=== PATIENT | male | born 1970 | race Caucasian/White ===

== ENCOUNTER → 2017-12-25 | Outpatient (CLI) | payer BC ==
[2017-12-25 14:35] LABS: HCT 43.9 % (39.0-53.0); HGB 14.9 gm/dL (13.0-17.5); MCH 33.4 pg (25.0-35.0); MCHC 33.9 g/dL (31.0-37.0); MCV 98.4 fL (80.0-100.0); Mean Platelet Volume 7.6; Platelet Count 185 k/uL (150-450); RBC 4.46 m/uL (4.30-5.90); RDW 14.1 % (11.5-15.5)
[2017-12-25 14:48] LABS: Anion Gap 11 mmol/L; Blood Urea Nitrogen 12 mg/dL (9-20); Carbon Dioxide 23 mmol/L (22-30); Chloride 109 mmol/L (98-107); Potassium 3.9 mmol/L (3.5-5.1); Sodium 143 mmol/L (137-145)
== END | disposition home or self-care (01) ==
LOC: LABPAT 13:59
PROVIDERS: ATTEND Internal Medicine Interventional Cardiology
DX: Z01.812 Encounter for preprocedural laboratory examination (principal); R07.9 Chest pain, unspecified
CPT/HCPCS: 80051; 82565; 84520; 85027

== ENCOUNTER 2017-12-30 06:41 | Day surgery (SDC) | payer BC, OTHER ==
[2017-12-22 15:32] VITALS: BMI 29.6
[~2017-12-30 06:41] MED LIST: ALPRAZolam 0.25 MG TAB PO PRN; ALPRAZolam 0.5 MG TAB PO PRN; ASPIRIN 325 MG TAB PO STA; ATORVASTATIN 80 MG TAB PO STA; NITROGLYCERIN SL TABS 0.4 MG TAB SUBLINGUAL PRN; SODIUM CHLORIDE 0.9% 1,000 ML in EMPTY BAG 1 BAG IV ONE
[2017-12-30 07:14] VITALS: PULSE 71; TEMP 98.5
[2017-12-30] MEDS ORDERED: LIDOCAINE 1% INJ 10MG/ML (20 ML MDV) ONE (07:14)
[2017-12-30] MEDS ORDERED: MIDAZOLAM 2 MG/2 ML VIAL ONE ×2 (07:14→07:49)
[2017-12-30] MEDS ORDERED: VERAPAMIL 2.5 MG/ML 2 ML AMP ONE (07:14)
[2017-12-30] MEDS ORDERED: HEPARIN SODIUM 1,000 UN/ML (10ML VL) ONE (07:14)
[2017-12-30] MEDS ORDERED: MIDAZOLAM 2 MG/2 ML VIAL IVP ONE ×2 (07:44→07:50)
[2017-12-30] MEDS ORDERED: fentaNYL (PF) 50 MCG/ML 2 ML AMP ONE (07:46)
[2017-12-30] MEDS ORDERED: LIDOCAINE 1% INJ 10MG/ML (20 ML MDV) SQ ONE (07:47)
[2017-12-30] MEDS ORDERED: fentaNYL (PF) 50 MCG/ML 2 ML AMP IVP ONE (07:47)
[2017-12-30] MEDS ORDERED: HEPARIN SODIUM 1,000 UN/ML (10ML VL) IV ONE (07:48)
[2017-12-30] MEDS: VERAPAMIL SYRINGE (5 MG/10 ML) INTRAARTER ONE ×2 (07:48→07:57)
[2017-12-30] MEDS ORDERED: IOPAMIDOL-370 125ML BTL INJ ONE (07:57)
[2017-12-30] MEDS ORDERED: RX INFO: IV CONTRAST WAS GIVEN 1 EACH MISC MISCELLANE PRN (08:06)
[2017-12-30] MEDS ORDERED: SODIUM CHLORIDE 0.9% 1,000 ML IV SCH (08:15)
--- NOTE | 2017-12-30 08:55 | LTR ---
December 30, 2017 Re: John Butch Dear Dr. Liu: Mr. Butch Lopez underwent a heart catheterization today and that revealed normal coronaries. I want to thank you for allowing me to participate in his care and please do not hesitate to call if you have any question or concern. Sincerely, MD LIZ Cavazos / COLEMAN: [id number] /
--- NOTE | 2017-12-30 08:55 | CC ---
CARDIAC CATHETERIZATION REPORT DATE OF SERVICE: 12/30/2017 PERFORMING PHYSICIAN: Tuan Brar MD, ship manager. PROCEDURE PERFORMED: 1. Selective right and left coronary angiogram. 2. Left heart catheterization. INDICATION: This is a pleasant 47-year-old gentleman who continues to have chest discomfort in spite of maximized medical treatment. He does have multiple risk factors for coronary artery disease including hypertension and dyslipidemia. APPROACH: Right radial artery. COMPLICATION: None. LEVEL OF SEDATION: Moderate with sedation length of 13 minutes. PROCEDURE DESCRIPTION: After obtaining an informed consent, the patient was brought to cardiac labor training manager. The right radial artery was cannulated using micropuncture technique, the micropuncture wire passed easily then I placed a 6-Yoruba sheath in the right radial artery. I gave the patient after that 2 mg of verapamil IA and 10,000 units of heparin IV. Selective right and left coronary angiogram was performed using JR4 and JL3.5 catheters. After that I did left heart catheterization using JR4 catheter which flipped into the LV and I did pullback across the aortic valve. The procedure was completed without any complication. SELECTIVE CORONARY ANGIOGRAM: 1. The RCA is a large caliber vessel. It is a dominant vessel. It is angiographically normal. 2. The left main is angiographically normal. It bifurcates into the circumflex and left anterior descending artery. 3. Left circumflex is a large caliber vessel and it is a codominant vessel. The left circumflex system is angiographically normal. It gives rise into the first and second obtuse marginal branches both are angiographically normal. 4. LAD: The proximal LAD is angiographically normal. The mid LAD is normal and gives rise into 2 diagonal branches both are angiographically normal. The LAD distally is angiographically normal. HEMODYNAMICS: The left ventricular end-diastolic pressure was at 12 mmHg and no gradient was identified across the aortic valve. CONCLUSION: 1. Normal coronary angiogram. 2. Normal left ventricular end-diastolic pressure. Postprocedure management is medical treatment and follow up with the patient. MMODL / IJN: [id number] /
[2017-12-30] MEDS ORDERED: NON-FORMULARY DRUG (Omeprazole 40 MG) PO SCH (09:00)
[2017-12-30] MEDS ORDERED: ATORVASTATIN 40 MG TAB PO SCH (09:00)
[2017-12-30] MEDS ORDERED: METOPROLOL TARTRATE 12.5 MG TAB PO SCH (09:00)
[2017-12-30] MEDS ORDERED: NON-FORMULARY DRUG (Aspirin [Adult Low Dose Aspirin Ec] 81 MG) PO SCH (09:00)
[2017-12-30] MEDS ORDERED: ISOSORBIDE MONONITRATE ER 15 MG TAB PO SCH (09:00)
[2017-12-30] MEDS ORDERED: PARoxetine 20 MG TAB PO SCH (09:00)
[2017-12-30 10:56] VITALS: RESP 18
[2017-12-30 13:02] VITALS: BP 102/70
[2017-12-30] MEDS ORDERED: ALPRAZolam 0.25 MG TAB PO SCH (21:00)
== END 2017-12-30 13:00 | disposition home or self-care (01) ==
LOC: CATHCVL 06:41
PROVIDERS: ATTEND Internal Medicine Interventional Cardiology
DX: I20.0 Unstable angina (principal); I10 Essential (primary) hypertension; I48.0 Paroxysmal atrial fibrillation; E78.5 Hyperlipidemia, unspecified; F17.200 Nicotine dependence, unspecified, uncomplicated; Z82.49 Family history of ischemic heart disease and other diseases of the circulatory system; Z79.899 Other long term (current) drug therapy
CPT/HCPCS: 93458; C1894; J2250; J2001; J3010; J1644; Q9967